=== PATIENT | male | born 1955 | race Caucasian/White ===

== ENCOUNTER 2022-05-02 17:56 | Emergency (ER) | payer MEDICARE, OTHER ==
[~2022-05-02] VITALS: Ht 175.3 cm; Wt 90.7 kg
[2022-05-02] MEDS ORDERED: fentaNYL INJ 100 MCG/2 ML AMP IVP STA (18:06)
[2022-05-02 18:09] LABS: BASOPHILS # (AUTO) 0.1 10^3/uL (0.0-0.1); BASOPHILS % (AUTO) 1 % (0-10); EOSINOPHILS # (AUTO) 0.2 10^3/uL (0.0-0.3); EOSINOPHILS % (AUTO) 2 % (0-10); HEMATOCRIT 44 % (40-54); HEMOGLOBIN 15.5 g/dL (13.3-17.7); LYMPHOCYTES # (AUTO) 3.8 10^3/uL (1.0-4.0); LYMPHOCYTES % (AUTO) 35 % (12-44); MEAN CORPUSCULAR HEMOGLOBIN 29 pg (25-34); MEAN CORPUSCULAR HGB CONC 36 g/dL (32-36); MEAN CORPUSCULAR VOLUME 82 fL (80-99); MEAN PLATELET VOLUME 10.7 fL (9.0-12.2); MONOCYTES # (AUTO) 1.2 10^3/uL (0.0-1.0); MONOCYTES % (AUTO) 11 % (0-12); NEUTROPHILS # (AUTO) 5.4 10^3/uL (1.8-7.8); NEUTROPHILS % (AUTO) 50 % (42-75); PLATELET COUNT 278 10^3/uL (130-400); WHITE BLOOD COUNT 10.8 10^3/uL (4.3-11.0)
--- NOTE | 2022-05-02 18:11 | ED Chest Pain ---
General Chief Complaint: Chest Pain Stated Complaint: CHEST PAIN History of Present Illness Date Seen by Provider: May 02, 2022 Time Seen by Provider: 18:00 Initial Comments 66-year-old male presents with pressure in his upper chest and throat and sign ificant pain between his shoulder blades in his back. Patient reports that he had an episode that was similar to this about a month ago but then over the last 3 days he has been having this on and off. This episode so started couple hours ago and is just gotten worse. Patient denies any shortness of breath, fever, chills, nausea or vomiting. He reports the pain gets worse if he eats or lays flat. Allergies and Home Medications Allergies Coded Allergies: No Known Drug Allergies (Unverified , 05/02/22) Patient Home Medication List Home Medication List Reviewed: Yes Review of Systems Review of Systems Constitutional: No chills, No fever EENTM: No Symptoms Reported Respiratory: Denies Cough, Denies Shortness of Air Cardiovascular: Chest Pain Gastrointestinal: Denies Abdominal Pain, Denies Nausea, Denies Vomiting Musculoskeletal: back pain Skin: no symptoms reported Psychiatric/Neurological: No Symptoms Reported Endocrine: No Symptoms Reported Hematologic/Lymphatic: No Symptoms Reported Physical Exam Vital Signs Vital Signs - First Documented 05/02/22 05/02/22 18:00 20:43 Temp 35.7 Pulse 79 Resp 22 B/P (MAP) 119/69 Pulse Ox 98 O2 Delivery Room Air Capillary Refill : Height, Weight, BMI Height: '" Weight: lbs. oz. kg; BMI Method: General Appearance: No Apparent Distress, WD/WN Respiratory: Lungs Clear, Normal Breath Sounds Cardiovascular: Regular Rate, Rhythm, No Edema Gastrointestinal: Non Tender, Soft Extremity: Normal Capillary Refill, Normal Range of Motion Neurologic/Psychiatric: Alert, Oriented x3, No Motor/Sensory Deficits, Normal Mood/Affect, bottom loader II-XII Norm as Tested Skin: Normal Color, Warm/Dry Progress/Results/Core Measures Results/Orders Lab Results Laboratory Tests Test 05/02/22 18:05 Range/Units White Blood Count 10.8 4.3-11.0 10^3/uL Red Blood Count 5.33 4.30-5.52 10^6/uL Hemoglobin 15.5 13.3-17.7 g/dL Hematocrit 44 40-54 % Mean Corpuscular Volume 82 80-99 fL Mean Corpuscular Hemoglobin 29 25-34 pg Mean Corpuscular Hemoglobin Concent 36 32-36 g/dL Red Cell Distribution Width 12.1 10.0-14.5 % Platelet Count 278 130-400 10^3/uL Mean Platelet Volume 10.7 9.0-12.2 fL Immature Granulocyte % (Auto) 1 % Neutrophils (%) (Auto) 50 42-75 % Lymphocytes (%) (Auto) 35 12-44 % Monocytes (%) (Auto) 11 0-12 % Eosinophils (%) (Auto) 2 0-10 % Basophils (%) (Auto) 1 0-10 % Neutrophils # (Auto) 5.4 1.8-7.8 10^3/uL Lymphocytes # (Auto) 3.8 1.0-4.0 10^3/uL Monocytes # (Auto) 1.2 H 0.0-1.0 10^3/uL Eosinophils # (Auto) 0.2 0.0-0.3 10^3/uL Basophils # (Auto) 0.1 0.0-0.1 10^3/uL Immature Granulocyte # (Auto) 0.1 0.0-0.1 10^3/uL Prothrombin Time 12.4 12.2-14.7 SEC INR Comment 0.9 0.8-1.4 Activated Partial Thromboplast Time 27 24-35 SEC Sodium Level 140 135-145 MMOL/L Potassium Level 3.4 L 3.6-5.0 MMOL/L Chloride Level 102 98-107 MMOL/L Carbon Dioxide Level 24 21-32 MMOL/L Anion Gap 14 5-14 MMOL/L Blood Urea Nitrogen 16 7-18 MG/DL Creatinine 0.86 0.60-1.30 MG/DL Estimat Glomerular Filtration Rate 95 BUN/Creatinine Ratio 19 Glucose Level 143 H 70-105 MG/DL Calcium Level 9.9 8.5-10.1 MG/DL Corrected Calcium 8.5-10.1 MG/DL Magnesium Level 2.0 1.6-2.4 MG/DL Total Bilirubin 0.3 0.1-1.0 MG/DL Aspartate Amino Transf (AST/SGOT) 27 5-34 U/L Alanine Aminotransferase (ALT/SGPT) 33 0-55 U/L Alkaline Phosphatase 81 40-136 U/L Myoglobin 28.4 10.0-92.0 NG/ML Troponin I 1.29 *H <0.30 NG/ML Total Protein 7.6 6.4-8.2 GM/DL Albumin 4.6 H 3.2-4.5 GM/DL Lipase 19 8-78 U/L My Orders Orders - REINA,DENIS L DO Cbc With Automated Diff (05/02/22 18:01) Magnesium (05/02/22 18:01) Chest 1 View Ap/Pa Only (05/02/22 18:01) Ekg Tracing (05/02/22 18:01) Comprehensive Metabolic Panel (05/02/22 18:01) Myoglobin Serum (05/02/22 18:01) Protime With Inr (05/02/22 18:) Partial Thromboplastin Time (05/02/22 18:) O2 (05/02/22 18:) Monitor-Rhythm Ecg Trace Only (05/02/22 18:01) Aspirin Chewable Tablet (Baby Aspirin Ch (05/02/22 18:15) Ed Iv/Invasive Line Start (05/02/22 18:01) Troponin I Fs (05/02/22 18:01) Fentanyl Inj (Sublimaze Injection) (05/02/22 18:06) Lipase (05/02/22 18:12) Famotidine Injection (Pepcid Injection) (05/02/22 18:15) Heparin Injection (Heparin Injection) (05/02/22 19:00) Heparin Drip 68950 Unit/500ml (Heparin (05/02/22 19:00) Initiate Heparin Acs Protocol (05/02/22 18:52) Nitroglycerin 0.4 Mg Btl 25's (Nitrostat (05/02/22 19:30) Potassium Chloride (Tablet) (K Dur Table (05/02/22 20:00) Morphine Injection (Morphine Injection (05/02/22 20:00) Ekg Tracing (05/02/22 19:59) Medications Given in ED Current Medications Medications Dose Ordered Sig/Vanna Route Start Time Stop Time Status Last Admin Dose Admin Heparin Sodium (Porcine) 4,000 units ONCE ONCE IV 05/02/22 19:00 05/02/22 19:01 DC 05/02/22 20:15 4,000 UNITS Morphine Sulfate 2 mg ONCE ONCE IVP 05/02/22 20:00 05/02/22 20:01 DC 05/02/22 20:15 2 MG Nitroglycerin 0.4 mg UD PRN SL 05/02/22 19:30 05/02/22 20:47 DC 05/02/22 19:58 0.4 MG Potassium Chloride 20 meq ONCE ONCE PO 05/02/22 20:00 05/02/22 20:01 DC 05/02/22 20:15 20 MEQ Vital Signs/I&O 05/02/22 05/02/22 18:00 20:43 Temp 35.7 Pulse 79 86 Resp 22 18 B/P (MAP) 119/69 Pulse Ox 98 99 O2 Delivery Room Air Room Air Progress Progress Note : Progress Note Patient with mild ST depression in V1 through 5. Patient's last heart cath was greater than 5 years ago. I did discuss with Dr. Lloyd anger control counselor economic research analyst at [facility]. Patient normally gets his care from Dr. Roblero at [facility]. Due to patient's previous cardiac history and procedures Dr. Lloyd feels it is not appropriate transfer to [facility] since they have not only cardiology but also electrophysiology and cardiothoracic surgery or further treatment is needed. Patient started on heparin in the ER. He will also be given 20 mEq potassium chloride because his potassium is slightly low at 3.4. Patient is excepted at [facility]. Due to EMS not available for transfer patient to be sent via helicopter. pt accepted by Dr Haddad for transfer. Initial ECG Impression Date: May 02, 2022 Initial ECG Impression Time: 18:00 EKG : EKG Time: 19:57 Rate: 61 Rhythm: Paced ECG Comparisson: Unchanged Departure Impression Primary Impression: Elevated troponin Additional Impressions: ST segment changes on electrocardiogram Chest pain due to coronary artery disease Disposition: XFER SHT-TRM HOSP Condition: Critical Transfer Transfer Reason: Exceeds level of care Time Spoke to Accepting Phy: 19:30 Transfer Progress Notes Patient to be transferred to [facility] for continuity of care along with advanced cardiac care such as cardiothoracic surgery. Patient to be trans ferred via helicopter as EMS transport is not available at this time due to the limited resources and no ACLS/in house cra available for transfer. Method of Transfer: DENIS Bates DO May 02, 2022 18:11
[2022-05-02] MEDS ORDERED: ASPIRIN 81 MG CHEW (CHILDREN'S ASA) PO ONE (18:15)
[2022-05-02] MEDS ORDERED: FAMOTIDINE 20MG/2ML IV (PEPCID) IVP ONE (18:15)
--- NOTE | 2022-05-02 18:17 | Diagnostic Imaging Report ---
EXAM: Chest 1 view AP/PA only INDICATION: Chest pain. COMPARISON: None. FINDINGS: Normal heart size and central pulmonary vascularity. Cardiac pacer. No focal pulmonary opacity. No pleural effusion or pneumothorax. No acute osseous finding. IMPRESSION: No acute cardiopulmonary finding. Dictated by: Dictated on workstation # [id number]
[2022-05-02 18:20] LABS: INR 0.9 (0.8-1.4); PROTHROMBIN TIME PATIENT 12.4 SEC (12.2-14.7)
[2022-05-02 18:32] LABS: ALANINE AMINOTRANSFERASE 33 U/L (0-55); ALBUMIN 4.6 GM/DL (3.2-4.5); ALKALINE PHOSPHATASE 81 U/L (40-136); BILIRUBIN,TOTAL 0.3 MG/DL (0.1-1.0); BUN/CREATININE RATIO 19; CALCIUM 9.9 MG/DL (8.5-10.1); CARBON DIOXIDE 24 MMOL/L (21-32); CHLORIDE 102 MMOL/L (98-107); CREATININE SERUM 0.86 MG/DL (0.60-1.30); GFR ESTIMATED 95; GLUCOSE 143 MG/DL (70-105); POTASSIUM 3.4 MMOL/L (3.6-5.0); SODIUM 140 MMOL/L (135-145); TOTAL PROTEIN 7.6 GM/DL (6.4-8.2)
[2022-05-02] MEDS ORDERED: HEParin DRIP 25000 UNIT/500ML 500 ML IV SCH (19:00)
[2022-05-02] MEDS ORDERED: NITROGLYCERIN 0.4 MG SL TABS BTL 25'S SL PRN (19:30)
[2022-05-02] MEDS ORDERED: morphine INJ 10 MG/ML 1ML (SYR OR VIAL) IVP ONE (20:00)
[2022-05-02] MEDS ORDERED: KCL 20 MEQ TAB (K-DUR) PO ONE (20:00)
[2022-05-02 20:43] VITALS: BP 119/69
== END 2022-05-02 20:47 | disposition short-term general hospital (02) ==
LOC: ER FS 17:58
DX: I25.10 Atherosclerotic heart disease of native coronary artery without angina pectoris (principal); R77.8 Other specified abnormalities of plasma proteins; R94.31 Abnormal electrocardiogram [ECG] [EKG]; Z95.9 Presence of cardiac and vascular implant and graft, unspecified
CPT/HCPCS: 36415; 71045; 80053; 83690; 83735; 83874; 84484; 85025; 85610; 85730; 93005; 93041